=== PATIENT | female | born 1985 | race Caucasian/White ===

== ENCOUNTER 2017-02-27 10:09 | Emergency (ER) | payer SELFPAY ==
--- NOTE | 2017-02-27 19:02 | RAD ---
RIGHT FOOT THREE VIEWS: Date: 02-27-17 FINDINGS: No fracture was appreciated. All bones appeared intact. IMPRESSION: No acute bony finding. POS: HOME
== END 2017-02-27 10:54 | disposition home or self-care (01) ==
LOC: BURERS 10:09
DX: S90.31XA Contusion of right foot, initial encounter (principal); W20.8XXA Other cause of strike by thrown, projected or falling object, initial encounter